=== PATIENT | female | born 1990 | race Caucasian/White ===

== ENCOUNTER 2020-04-17 23:47 | Inpatient (IN) | payer BC ==
[~2020-04-17] VITALS: Ht 170.2 cm; Wt 110.0 kg
--- NOTE | 2020-04-18 09:41 | PR ---
[facility] [address] [facility] [place] [address] Signed Progress Notes IP Datetime Report Generated by CPN: 04/18/2020 09:41 PROGRESS NOTES: [id number] VITAL SIGNS: [id number] Vital Signs: Reviewed; Within Normal Limits EXAM: [id number] Dilatation: 4.0 Effacement: 80 Station: -2 MEMBRANES: [id number] Comments: Continue expectant management per plan Fetus A: [id number] FHR Baseline: 130 Variability: Moderate 6-25bpm Accelerations: None Decelerations: None FHR Category: Category I Presentation: Vertex Comments on Fetus A: No evidence of metabolic acidosis Fetus B: [id number] Signing Physician: Trenton Su DO Copies: ~ *Electronically Signed* 04/18/20 0941 TRENTON SU DO PATIENT NAME: BANDAR OLIVEIRA PROGRESS NOTE DATE OF : 88 PHYSICIAN: TRENTON SU DO RPT #: [id number] REPORT IS CONFIDENTIAL AND NOT TO BE RELEASED WITHOUT AUTHORIZATION
--- NOTE | 2020-04-18 12:37 | PR ---
[facility] [address] [facility] [place], [place] [address] Signed Progress Notes IP Datetime Report Generated by CPN: 04/18/2020 12:36 PROGRESS NOTES: [id number] Impression: Normal progression of labor; Reassuring heart rate Procedures: Artificial ROM; Scalp Electrode; Sterile Vag Exam Plan: Continue present management Informed Consent Obtain: Vaginal Delivery VITAL SIGNS: [id number] Vital Signs: Reviewed; Within Normal Limits EXAM: [id number] Dilatation: 5.5 Effacement: 80 Station: -2 Uterine Contractions: q 2-3 minutes MEMBRANES: [id number] Comments: PT seen and examined. Doing well. Discussed AROM and pt agrees. vertex -3 station but well applied to cervix. AROM performed without complication for moderate amount meconium stained amniotic fluid. Fetus A: [id number] FHR Baseline: 135 Variability: Moderate 6-25bpm Accelerations: 15X15 Decelerations: None FHR Category: Category I Presentation: Vertex Comments on Fetus A: No evidence of metabolic acidosis Fetus B: [id number] Signing Physician: Trenton Su DO Copies: ~ *Electronically Signed* 04/18/20 1236 TRENTON SU DO PATIENT NAME: BANDAR OLIVEIRA PROGRESS NOTE DATE OF : 89 PHYSICIAN: TRENTON SU DO RPT #: [id number] REPORT IS CONFIDENTIAL AND NOT TO BE RELEASED WITHOUT AUTHORIZATION
--- NOTE | 2020-04-18 14:58 | PR ---
[facility] [address] [facility] [place], [place] [address] Signed Progress Notes IP Datetime Report Generated by CPDusty: 04/18/2020 14:58 PROGRESS NOTES: [id number] Impression: Normal progression of labor; Reassuring heart rate Procedures: Sterile Vag Exam Plan: Continue present management; Anticipate Vaginal Delivery Informed Consent Obtain: Vaginal Delivery VITAL SIGNS: [id number] Vital Signs: Reviewed; Within Normal Limits EXAM: [id number] Dilatation: 9.0 Effacement: 90 Station: -2 Uterine Contractions: q 2-3 per pt MEMBRANES: [id number] Comments: Pt seen and examined. Very uncomfortable w/ contractions and feeling urge to push. Cx 9cm. Anticipate soon. Will watch closely. Fetus A: [id number] FHR Baseline: 130 Variability: Moderate 6-25bpm Accelerations: 15X15 Decelerations: Variable FHR Category: Category II Presentation: Vertex Comments on Fetus A: No evidence of metabolic acidosis Fetus B: [id number] Signing Physician: Trenton Su DO Copies: ~ *Electronically Signed* 04/18/20 8634 TRENTON SU DO PATIENT NAME: BANDAR OLIVEIRA PROGRESS NOTE DATE OF : 89 PHYSICIAN: TRENTON SU DO RPT #: [id number] REPORT IS CONFIDENTIAL AND NOT TO BE RELEASED WITHOUT AUTHORIZATION
--- NOTE | 2020-04-19 08:24 | PR ---
[facility] [address] [facility] [place], [place] [address] Signed PP Progress Notes Datetime Report Generated by CPN: 04/19/2020 08:23 SUBJECTIVE: [id number] Pain: Within normal limits Nausea/Vomiting: Denies Flatus: Yes Bowel Movement: No Vital Signs: [id number] Vital Signs: Reviewed; Within Normal Limits EXAM: [id number] Cardiovascular: Normal Respiratory: Normal Abdomen/Uterus: Normal Lochia: Normal Vulva/Perineum: Not Done Breasts: Not Done CVA Tenderness: Normal Extremities: Normal Incision: Not Applicable Progress: Normal Exam Comments: Fundus firm U-2 nontender IMPRESSION/PLAN/PROCEDURES: [id number] Impression: Normal progression Plan: Discharge Progress Notes: Pt seen and examined. Doing well. Ambulating, voiding, and tolerating full diet. Pain and lochia minimal. well. No fevers/chills or other concerns. Desires d/c home. Reviewed d/c instructions in detail. F/U 2 wks. Signing Physician: Trenton Su DO Copies: ~ *Electronically Signed* 04/19/20 0837 TRENTON SU DO PATIENT NAME: BANDAR OLIVEIRA PROGRESS NOTE DATE OF : 88 PHYSICIAN: TRENTON SU DO RPT #: [id number] REPORT IS CONFIDENTIAL AND NOT TO BE RELEASED WITHOUT AUTHORIZATION
== END 2020-04-19 16:50 | disposition home or self-care (01) | DRG 807 ==
LOC: FBC 23:47
PROVIDERS: ADMIT Obstetrics & Gynecology
PROC: 3E0P7VZ Introduction of Hormone into Female Reproductive, Via Natural or Artificial Opening (ICD-10-PCS; 2020-04-17)
PROC: 10E0XZZ Delivery of Products of Conception, External Approach (ICD-10-PCS; principal; 2020-04-18)
PROC: 10907ZC Drainage of Amniotic Fluid, Therapeutic from Products of Conception, Via Natural or Artificial Opening (ICD-10-PCS; 2020-04-18)
DX: O36.63X0 Maternal care for excessive fetal growth, third trimester, not applicable or unspecified (principal); Z37.0 Single live birth; Z3A.39 39 weeks gestation of pregnancy; O76 Abnormality in fetal heart rate and rhythm complicating labor and delivery; O77.0 Labor and delivery complicated by meconium in amniotic fluid; O69.81X0 Labor and delivery complicated by cord around neck, without compression, not applicable or unspecified; O67.9 Intrapartum hemorrhage, unspecified; Z87.440 Personal history of urinary (tract) infections
CPT/HCPCS: 36415; 85027; A9270; J1170; J2590